=== PATIENT | male | born 1955 | race African-American/Black ===

== ENCOUNTER 2016-09-30 08:50 | Emergency (ER) | payer MEDICAID ==
[~2016-09-30] VITALS: Ht 175.3 cm; Wt 69.9 kg
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
[2016-09-30] MEDS ORDERED: MORPHINE SULFATE INJ 4 MG/ML DISP.SYRIN ONE (08:58)
[2016-09-30] MEDS ORDERED: ONDANSETRON 4 MG TAB.RAPDIS ONE (08:59)
[2016-09-30] MEDS ORDERED: MORPHINE SULFATE INJ 2 MG/ML DISP.SYRIN IM ONE (09:00)
[2016-09-30] MEDS ORDERED: ONDANSETRON 4 MG TAB.RAPDIS PO ONE (09:00)
--- NOTE | 2016-09-30 09:00 | NUR ---
PT MEDICATED ORDERED.
--- NOTE | 2016-09-30 09:10 | NUR ---
PT TAKEN FOR XRAY.
--- NOTE | 2016-09-30 10:22 | NUR ---
Pt ambulatory with a steady gait. Patient discharged to home in stable condition. Written and verbal after care instructions given. Patient verbalizes understanding of instruction.
[2016-09-30 10:23] VITALS: BP 154/98
== END 2016-09-30 10:23 | disposition home or self-care (01) ==
LOC: ER 08:54
DX: S40.012A Contusion of left shoulder, initial encounter (principal); S80.02XA Contusion of left knee, initial encounter; I10 Essential (primary) hypertension; E11.9 Type 2 diabetes mellitus without complications; F17.200 Nicotine dependence, unspecified, uncomplicated; V28.4XXA Motorcycle driver injured in noncollision transport accident in traffic accident, initial encounter; Y93.55 Activity, bike riding; Y92.413 State road as the place of occurrence of the external cause; Y99.8 Other external cause status
CPT/HCPCS: 73030-TC; 73564-TC; 73590-TC; 82962-TC; A4606; J2270; Q0162; Z7610

== ENCOUNTER 2017-07-13 05:34 | Emergency (ER) | payer MEDICAID ==
[~2017-07-13] VITALS: Ht 170.2 cm; Wt 68.0 kg
[2017-07-13 05:34] VITALS: BP 146/78
--- NOTE | 2017-07-13 06:30 | NUR ---
PT LEFT WITHOUT BEING SEEN BY MD. Patient does not wish to proceed with medical care recommended by Dr. Gaytan. Patient given information related to possible complications, up to and including , which could occur as a result of leaving the hospital at this time. Patient verbalizes understanding of risks involved due to leaving against medical advice. Patient has signed AMA form.
== END 2017-07-13 06:30 | disposition left against medical advice (07) ==
LOC: ER 05:36
DX: R45.1 Restlessness and agitation (principal); E11.9 Type 2 diabetes mellitus without complications; I10 Essential (primary) hypertension; F17.200 Nicotine dependence, unspecified, uncomplicated; G62.9 Polyneuropathy, unspecified
CPT/HCPCS: A4606; Z7610

== ENCOUNTER 2017-12-27 04:59 | Emergency (ER) | payer OTHER ==
[~2017-12-27] VITALS: Ht 172.7 cm; Wt 68.5 kg
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
--- NOTE | 2017-12-27 05:10 | NUR ---
AT BEDSIDE FOR EVAL.
[2017-12-27] MEDS ORDERED: KETOROLAC TROMETHAMINE 15 MG/ML VIAL ONE (05:15)
--- NOTE | 2017-12-27 05:15 | NUR ---
EMT AT BEDSIDE FOR EKG.
[2017-12-27] MEDS ORDERED: HYDROCODONE/APAP 10/325MG 1 EA TABLET ONE (05:16)
--- NOTE | 2017-12-27 05:19 | NUR ---
XRAY AT BEDSIDE.
[2017-12-27] MEDS ORDERED: HYDROCODONE/APAP 10/325MG 1 EA TABLET PO ONE (05:30)
[2017-12-27] MEDS ORDERED: KETOROLAC TROMETHAMINE INJ 30 MG/ML VIAL IV ONE (05:30)
--- NOTE | 2017-12-27 05:30 | NUR ---
20G IV TO L AC X 1 ATTEMPT USING ASEPTIC TECH, BLOOD HANDED OVER TO THE LAB AT BEDSIDE. IV FLUSHES EASILY WITH NS, NO S/S INFILTRATION NOTED AT THIS TIME.
--- NOTE | 2017-12-27 05:48 | NUR ---
TECH AT BEDSIDE FOR VENOUS DUPLEX.
[2017-12-27] MEDS ORDERED: IV NS 0.9% 1,000 ML BAG IV ONE (06:00)
[2017-12-27 06:03] LABS: CALCIUM, SERUM 8.5 mg/dL (8.5-10.1); CREATININE 0.8 mg/dL (0.6-1.3); POTASSIUM 3.7 mmol/L (3.5-5.1)
[2017-12-27 06:05] LABS: INR 0.95 (0.87-1.13)
[2017-12-27 06:58] LABS: HEMATOCRIT 35 % (39-51); HEMOGLOBIN 11.7 g/dL (13.5-17.5); MEAN CORPUSCULAR HEMOGLOBIN 32 PG (26.0-33.0); MEAN CORPUSCULAR HGB CONC 34 g/dl (31.0-36.0); MEAN CORPUSCULAR VOLUME 94 fL (80-96); PLATELET COUNT (AUTO) 247 /CMM (150-450); RDW COEFFICIENT OF VARIATION 42.9 (11.5-15.0); RED BLOOD CELL COUNT(AUTO) 3.67 MIL/uL (4.5-6.0); WHITE BLOOD COUNT (AUTO) 7.8 K/uL (4.3-11.0)
[2017-12-27 06:59] LABS: BASOPHILS # (AUTO) 0.1 /CMM (0.0-0.2); BASOPHILS % (AUTO) 0.8 % (0.0-2.0); EOSINOPHILS % (AUTO) 3.6 % (0.0-6.0); LYMPHOCYTES # (AUTO) 1.4 /CMM (0.8-4.8); LYMPHOCYTES % (AUTO) 18.6 % (20.0-44.0); MONOCYTES # (AUTO) 0.4 /CMM (0.1-1.30); MONOCYTES % (AUTO) 5.7 % (2.0-12.0); NEUTROPHILS # (AUTO) 5.5 /CMM (1.8-8.9); NEUTROPHILS % (AUTO) 71.3 % (43.0-81.0)
--- NOTE | 2017-12-27 07:25 | NUR ---
IV removed. Catheter intact and site benign. Pressure and 4x4 applied to site. No bleeding noted. Patient discharged to home in stable condition. Written and verbal after care instructions given. Patient verbalizes understanding of instruction.
[2017-12-27 07:26] VITALS: BP 163/83
== END 2017-12-27 07:27 | disposition home or self-care (01) ==
LOC: ER 05:02
DX: S70.12XA Contusion of left thigh, initial encounter (principal); I10 Essential (primary) hypertension; E11.40 Type 2 diabetes mellitus with diabetic neuropathy, unspecified; F17.200 Nicotine dependence, unspecified, uncomplicated; X58.XXXA Exposure to other specified factors, initial encounter; Y93.89 Activity, other specified; Y92.830 Public park as the place of occurrence of the external cause; Y99.8 Other external cause status
CPT/HCPCS: 36415; 71045-TC; 80048-TC; 82962-TC; 85025-TC; 85730-TC; 93971-TC; A4606; J1885; J7030; Z7610

== ENCOUNTER 2021-06-04 04:08 | Emergency (ER) | payer OTHER ==
[~2021-06-04] VITALS: Ht 175.3 cm; Wt 64.9 kg
--- NOTE | 2021-06-04 04:25 | NUR ---
PATIENT [id number] FROM [facility] (HOMELESS) C/O HIGH BG, RN CLINICAL APPEALS [phone]. PATIENT IS A/O, RR EVEN AND UNLABORED, NO SOB NOTED. PATIENT CONNECTED TO [employer] MAKER AND POX.
[2021-06-04] MEDS ORDERED: IV NS 0.9% 1,000 ML BAG IV ONE (04:30)
--- NOTE | 2021-06-04 04:30 | NUR ---
BLOOD COLLECTED AND SENT TO LAB
--- NOTE | 2021-06-04 04:35 | NUR ---
URINE COLLECTED AND SENT TO LAB
--- NOTE | 2021-06-04 04:38 | NUR ---
patient going to ct
[2021-06-04 04:41] LABS: BILIRUBIN,URINE NEGATIVE (NEGATIVE); COLOR,URINE YELLOW (YELLOW); LEUKOCYTE ESTERASE ,URINE NEGATIVE (NEGATIVE); NITRITE, URINE NEGATIVE (NEGATIVE); PH,URINE 6.5 (5.0-8.0); PROTEIN,URINE 30 mg/dl (NEGATIVE); UGLUCOSE >=1000 mg/dL (NEGATIVE); UROBILINOGEN,URINE 0.2 EU/dL (0.2)
[2021-06-04 04:42] LABS: BASOPHILS % (AUTO) 0.7 % (0.0-2.0); EOSINOPHILS % (AUTO) 1.1 % (0.0-6.0); HEMATOCRIT 38 % (39-51); HEMOGLOBIN 12.6 g/dL (13.5-17.5); LYMPHOCYTES # (AUTO) 1.5 K/uL (0.8-4.8); LYMPHOCYTES % (AUTO) 27.7 % (20.0-44.0); MEAN CORPUSCULAR HGB CONC 33 g/dl (31.0-36.0); MEAN CORPUSCULAR VOLUME 95 fL (80-96); MONOCYTES # (AUTO) 0.3 K/uL (0.1-1.30); MONOCYTES % (AUTO) 6.3 % (2.0-12.0); NEUTROPHILS # (AUTO) 3.6 K/uL (1.8-8.9); NEUTROPHILS % (AUTO) 64.2 % (43.0-81.0); PLATELET COUNT (AUTO) 260 K/uL (150-450); RED BLOOD CELL COUNT(AUTO) 4.01 MIL/uL (4.5-6.0); WHITE BLOOD COUNT (AUTO) 5.5 K/uL (4.3-11.0)
[2021-06-04 04:50] LABS: WBC,URINE 0-2 /HPF (0-3)
[2021-06-04 04:51] LABS: BACTERIA,URINE Few /HPF (None Seen); SQUAMOUS EPITHELIAL CELL,UR Few /HPF (None Seen); YEAST,URINE Moderate /HPF (None Seen)
[2021-06-04 04:56] LABS: CALCIUM, SERUM 8.5 mg/dL (8.5-10.1); CARBON DIOXIDE 26 mmol/L (21-32); CHLORIDE 97 mmol/L (98-107); CREATININE 1.3 mg/dL (0.6-1.3); POTASSIUM 4.1 mmol/L (3.5-5.1); SODIUM SERUM 136 mmol/L (136-145); UREA NITROGEN, BLOOD 23 mg/dL (7-18)
--- NOTE | 2021-06-04 04:57 | NUR ---
BG 567
[2021-06-04 04:58] LABS: ALANINE AMINOTRANSFERASE 82 U/L (12-78); ALBUMIN 3.4 g/dL (3.4-5.0); ALKALINE PHOSPHATASE 159 U/L (46-116); ASPARTATE AMINOTRANSFERASE 98 U/L (15-37); BILIRUBIN,DIRECT 0.1 mg/dL (0.0-0.2); BILIRUBIN,TOTAL 0.4 mg/dL (0.2-1.0); TOTAL PROTEIN, SERUM 6.9 g/dL (6.4-8.2)
[2021-06-04 05:01] LABS: ACETAMINOPHEN 0 ug/ml (10-30); GLUCOSE 567 mg/dL (74-106)
[2021-06-04] MEDS ORDERED: INSULIN REGULAR, HUMAN 100 UNIT/ML 10 ML VIAL SQ ONE (06:00)
[2021-06-04] MEDS ORDERED: INSULIN REGULAR, HUMAN 100 UNIT/ML 10 ML VIAL ONE (06:21)
[2021-06-04] MEDS ORDERED: KETOROLAC TROMETHAMINE INJ 30 MG/ML VIAL IM ONE (09:30)
[2021-06-04] MEDS ORDERED: KETOROLAC TROMETHAMINE INJ 30 MG/ML VIAL ONE (09:31)
[2021-06-04] MEDS ORDERED: METF-440 PO (10:17)
--- NOTE | 2021-06-04 10:17 | NUR ---
BLOOD SUGAR 251, MD AWARE
--- NOTE | 2021-06-04 11:02 | NUR ---
SW met with pt. and provided homeless resources. Pt. requested a bus card, SW provided pt. with one. Pt. signed homeless waiver.
[2021-06-04 11:44] VITALS: BP 135/73
--- NOTE | 2021-06-04 11:45 | NUR ---
Patient given written and verbal discharge instructions. Patient verbalizes understanding of instructions. Patient is ambulatory with steady gait. Refuses offer of nursing home placement. Patient given list of available shelters in surrounding area.
[2021-06-06 15:18] LABS: ALCOHOL, BLOOD < 3 mg/dL (0-0)
== END 2021-06-04 11:46 | disposition home or self-care (01) ==
LOC: ER 04:12
DX: R41.82 Altered mental status, unspecified (principal); E11.65 Type 2 diabetes mellitus with hyperglycemia; F10.129 Alcohol abuse with intoxication, unspecified; I10 Essential (primary) hypertension; Y90.9 Presence of alcohol in blood, level not specified; Z59.00 Homelessness unspecified
CPT/HCPCS: 36415; 70450; 71045; 80048; 80076; 80143; 80307; 80320; 81001; 82962 ×2; 84484; 85025; 87086; 93005; 96360; 96372 ×2; 99285; J1815; J1885; J7030; G0480

== ENCOUNTER 2021-06-15 17:48 | Emergency (ER) | payer OTHER ==
[~2021-06-15] VITALS: Ht 175.3 cm; Wt 59.0 kg
[~2021-06-15 17:48] MED LIST: METF-440 PO
--- NOTE | 2021-06-15 20:06 | NUR ---
PT WALKED IN TO ER ; HOMELESS. C/O UNCONTROLLED URINATION. BILAT FOOT PAIN AND SWELLING. PT IS DIABETIC, NOT ON ANY TREATMENT. UNCOMPLIANT WITH INSULIN MEDS (TOOK IT LAST 6 MONTHS AGO). PT A/OX3. TOLERATING R/A WELL WITH NO SOB. CONNECTED PT TO POX AND MONITOR.
--- NOTE | 2021-06-15 20:11 | NUR ---
BS 403; TRAV GERMAIN AWARE
--- NOTE | 2021-06-15 20:11 | NUR ---
BS 403; TRAV GERMAIN AWARE
--- NOTE | 2021-06-15 20:35 | NUR ---
LAC #18G S/L PATENT AND INTACT. BLOOD COLLECTED AND SENT TO LAB
--- NOTE | 2021-06-15 20:35 | NUR ---
LAC #18G S/L PATENT AND INTACT. BLOOD COLLECTED AND SENT TO LAB
--- NOTE | 2021-06-15 20:38 | NUR ---
TRAV GERMAIN AT PT'S BEDSIDE
--- NOTE | 2021-06-15 20:38 | NUR ---
TRAV GERMAIN AT PT'S BEDSIDE
--- NOTE | 2021-06-15 20:49 | NUR ---
URINE COLLECTED AND SENT TO LAB
--- NOTE | 2021-06-15 20:49 | NUR ---
URINE COLLECTED AND SENT TO LAB
--- NOTE | 2021-06-15 20:51 | NUR ---
CEMETERY VAULT INSTALLER AT PT'S BEDSIDE
--- NOTE | 2021-06-15 20:51 | NUR ---
CLINICAL DOCUMENTATION SPEC AT PT'S BEDSIDE
[2021-06-15] MEDS ORDERED: IV NS 0.9% 500 ML IV ONE (21:00)
[2021-06-15] MEDS ORDERED: hydrALAZINE HCL IV 20 MG VIAL IV ONE (21:00)
[2021-06-15] MEDS ORDERED: hydrALAZINE HCL IV 20 MG VIAL ONE (21:02)
[2021-06-15 21:15] LABS: BASOPHILS # (AUTO) 0.1 K/uL (0.0-0.2); BASOPHILS % (AUTO) 0.6 % (0.0-2.0); EOSINOPHILS % (AUTO) 0.3 % (0.0-6.0); HEMATOCRIT 43 % (39-51); HEMOGLOBIN 14.3 g/dL (13.5-17.5); LYMPHOCYTES # (AUTO) 1.3 K/uL (0.8-4.8); LYMPHOCYTES % (AUTO) 12.6 % (20.0-44.0); MEAN CORPUSCULAR HGB CONC 34 g/dl (31.0-36.0); MEAN CORPUSCULAR VOLUME 93 fL (80-96); MONOCYTES # (AUTO) 0.6 K/uL (0.1-1.30); NEUTROPHILS # (AUTO) 8.3 K/uL (1.8-8.9); NEUTROPHILS % (AUTO) 80.5 % (43.0-81.0); PLATELET COUNT (AUTO) 347 K/uL (150-450); WHITE BLOOD COUNT (AUTO) 10.3 K/uL (4.3-11.0)
[2021-06-15 21:30] LABS: CALCIUM, SERUM 8.8 mg/dL (8.5-10.1); CREATININE 1.1 mg/dL (0.6-1.3); POTASSIUM 4.4 mmol/L (3.5-5.1)
[2021-06-15 21:34] LABS: BILIRUBIN,URINE NEGATIVE (NEGATIVE); COLOR,URINE YELLOW (YELLOW); LEUKOCYTE ESTERASE ,URINE NEGATIVE (NEGATIVE); NITRITE, URINE NEGATIVE (NEGATIVE); PROTEIN,URINE NEGATIVE (NEGATIVE); UGLUCOSE >=1000 mg/dL (NEGATIVE); UROBILINOGEN,URINE 0.2 EU/dL (0.2)
[2021-06-15 21:42] LABS: BACTERIA,URINE None seen /HPF (None Seen); RBC,URINE 0-2 /HPF (0-2); SQUAMOUS EPITHELIAL CELL,UR 0-2 /HPF (None Seen); WBC,URINE 0-2 /HPF (0-3)
[2021-06-15] MEDS ORDERED: CEPH500T PO (23:09)
[2021-06-15] MEDS ORDERED: AMLO-212 PO (23:09)
[2021-06-15] MEDS ORDERED: INSULIN REGULAR, HUMAN 100 UNIT/ML 10 ML VIAL SQ ONE (23:30)
[2021-06-15] MEDS ORDERED: CEPHALEXIN MONOHYDRATE 500 MG CAPSULE PO ONE (23:30)
--- NOTE | 2021-06-15 23:30 | NUR ---
Note deborah in ED - 06/25/21 at 0714 by KALYAN IV removed. Catheter intact and site benign. Pressure and 4x4 applied to site. No bleeding noted.
--- NOTE | 2021-06-15 23:30 | NUR ---
Note deborah in EDM - 06/25/21 at 0714 by KALYAN Patient given written and verbal discharge instructions. Patient verbalizes understanding of instructions. Patient is ambulatory with steady gait. Refuses offer of [facility] placement. Patient given list of available shelters in surrounding area.
--- NOTE | 2021-06-15 23:30 | NUR ---
Note deborah in EDM - 06/25/21 at 0714 by KALYAN Patient given written and verbal discharge instructions. Patient verbalizes understanding of instructions. Patient is ambulatory with steady gait. Refuses offer of senior living placement. Patient given list of available shelters in surrounding area.
[2021-06-16] MEDS ORDERED: INSULIN REGULAR, HUMAN 100 UNIT/ML 10 ML VIAL ONE (00:09)
--- NOTE | 2021-06-16 00:30 | NUR ---
IV removed. Catheter intact and site benign. Pressure and 4x4 applied to site. No bleeding noted.
--- NOTE | 2021-06-16 00:30 | NUR ---
IV removed. Catheter intact and site benign. Pressure and 4x4 applied to site. No bleeding noted.
--- NOTE | 2021-06-16 00:30 | NUR ---
Patient given written and verbal discharge instructions. Patient verbalizes understanding of instructions. Patient is ambulatory with steady gait. Refuses offer of intermediate placement. Patient given list of available shelters in surrounding area.
--- NOTE | 2021-06-16 01:20 | NUR ---
Julio cabrera in ED - 06/25/21 at 0715 by RYLAND Patient discharged to home in stable condition. Written and verbal after care instructions given. Patient verbalizes understanding of instruction.
[2021-06-16 04:23] VITALS: BP 158/96
== END 2021-06-16 00:40 | disposition home or self-care (01) ==
LOC: ER 17:53
DX: I10 Essential (primary) hypertension (principal); E11.65 Type 2 diabetes mellitus with hyperglycemia; E11.621 Type 2 diabetes mellitus with foot ulcer; L03.116 Cellulitis of left lower limb; L03.115 Cellulitis of right lower limb; Z59.00 Homelessness unspecified; Z79.899 Other long term (current) drug therapy
CPT/HCPCS: 36415; 73630 ×2; 80048; 81001; 85025; 96372; 96374; 99284; J0360; J1815; J7040